=== PATIENT | male | born 1995 | race Caucasian/White ===

== ENCOUNTER 2020-08-09 07:53 | Emergency (ER) | payer MEDICAID ==
[~2020-08-09] VITALS: Ht 175.3 cm; Wt 63.5 kg
[2020-08-09 07:56] VITALS: BP 142/68
--- NOTE | 2020-08-09 07:56 | NUR ---
BIBA TAKEN TO BED 11
--- NOTE | 2020-08-09 07:59 | NUR ---
25 YO M BIB SELF FOR C/C OF DIZZINESS POST SMOKING A JOINT OF MARIJUANA. PT IS A&OX4, STATES THAT DIZZINESS HAS PASSED. DENIES PAIN AT THIS TIME. EQUAL CHEST RISE AND FALL. S1S2 HEARD. LUNG SOUNDS CLEAR THROUGHOUT. DENIES FEVER, N/V, CONTACT WITH COVID. 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 BED LOCKED AND IN LOWEST POSITION. SIDE RAILS X1. MED HX: DENIES NO RX
--- NOTE | 2020-08-09 08:00 | NUR ---
ERMD AT BEDSIDE EVALUATING PT
[2020-08-09 08:59] VITALS: BP 142/68
--- NOTE | 2020-08-09 08:59 | NUR ---
Patient discharged with v/s stable. Written and verbal after care instructions given and explained. Patient verbalized understanding. Ambulatory with steady gait. All questions addressed prior to discharge. Advised to follow up with PMD.
== END 2020-08-09 08:59 | disposition home or self-care (01) ==
LOC: MED 07:53
DX: F12.10 Cannabis abuse, uncomplicated (principal); R42 Dizziness and giddiness; J45.909 Unspecified asthma, uncomplicated; Z79.899 Other long term (current) drug therapy
CPT/HCPCS: 93005; 99283

== ENCOUNTER 2020-08-20 22:44 | Emergency (ER) | payer MEDICAID ==
[~2020-08-20] VITALS: Ht 170.2 cm; Wt 72.6 kg
[2020-08-20 22:48] VITALS: BP 135/79
--- NOTE | 2020-08-20 22:51 | NUR ---
TO [facility] A/W BED AMBULATORY, VISUAL ACUITY; BOTH EYE 20/20, LEFT EYE 20/50, RT EYE 20/40
--- NOTE | 2020-08-21 02:05 | NUR ---
PT CALLED IN LOBBY AND OUTSIDE WITH NO ANSWER. PER ADMIT STAFF, PT LEFT. PATIENT LEFT WITHOUT BEING SEEN BY DR. PALOMINO. NO FURTHER CARE PROVIDED FOR PATIENT.
== END 2020-08-21 02:05 | disposition left against medical advice (07) ==
LOC: MED 22:44
DX: H57.89 Other specified disorders of eye and adnexa (principal); Z53.21 Procedure and treatment not carried out due to patient leaving prior to being seen by health care provider

== ENCOUNTER 2023-07-03 02:00 | Emergency (ER) | payer MEDICAID ==
[~2023-07-03] VITALS: Ht 172.7 cm; Wt 67.1 kg
[2023-07-03 02:25] VITALS: BP 111/76; PULSE 98; RESP 18; TEMP 97.3; O2SAT 82
[2023-07-03] MEDS ORDERED: ACET-10509 PO (03:28)
[2023-07-03] MEDS ORDERED: BACI-418 TP (03:28)
[2023-07-03] MEDS: LIDOCAINE/EPI 1% 1:100000 20 ML VIAL INJ ONE (04:00)
[2023-07-03] MEDS ORDERED: BACITRACIN OINT 500 UNITS/GM PKT TP ONE (04:20)
== END 2023-07-03 04:11 | disposition home or self-care (01) ==
LOC: MED 02:00
DX: S81.812A Laceration without foreign body, left lower leg, initial encounter (principal); J45.909 Unspecified asthma, uncomplicated; Z79.899 Other long term (current) drug therapy; Z79.2 Long term (current) use of antibiotics; W31.2XXA Contact with powered woodworking and forming machines, initial encounter; Y92.89 Other specified places as the place of occurrence of the external cause; Y93.89 Activity, other specified; Y99.8 Other external cause status
CPT/HCPCS: 12002; 90471; 90715; 99283; J2001

== ENCOUNTER 2023-11-12 11:37 | Emergency (ER) | payer OTHER ==
[~2023-11-12] VITALS: Ht 160 cm; Wt 68.0 kg
[~2023-11-12 11:37] MED LIST: ACET-10509 PO; BACI-418 TP
[2023-11-12 11:44] VITALS: BP 127/84; PULSE 54; RESP 20; TEMP 98; O2SAT 99
[2023-11-12 12:04] LABS: BASOPHILS % (AUTO) 0.6 % (0.0-2.0); EOSINOPHILS # (AUTO) 0.3 K/uL (0-0.4); EOSINOPHILS % (AUTO) 3.7 % (0.0-4.0); HEMATOCRIT 38.3 % (36-52); HEMOGLOBIN 13.1 g/dL (12.0-18.0); LYMPHOCYTES # (AUTO) 2.3 K/uL (2.0-11.5); LYMPHOCYTES % (AUTO) 33.8 % (20.5-51.1); MEAN CORPUSCULAR HEMOGLOBIN 31 pg (27-31); MEAN CORPUSCULAR HGB CONC 34 g/dL (33-37); MEAN CORPUSCULAR VOLUME 90.1 fL (80-94); MONOCYTES # (AUTO) 0.7 K/uL (0.8-1.0); NEUTROPHILS # (AUTO) 3.5 K/uL (1.8-7.7); NEUTROPHILS % (AUTO) 50.9 % (42.2-75.2); PLATELET COUNT (AUTO) 226 K/uL (140-450); RED BLOOD CELL COUNT(AUTO) 4.26 MIL/uL (4.20-6.10); RED CELL DISTRIBUTION WIDTH 13.2 % (11.6-13.7); WHITE BLOOD COUNT (AUTO) 6.8 K/uL (4.8-10.8)
[2023-11-12] MEDS: KETOROLAC 30 MG/ML VIAL IVP ONE (12:14)
[2023-11-12] MEDS: NACL 0.9% 1,000 ML IV SCH (12:14)
[2023-11-12] MEDS: diphenhydrAMINE 50 MG/ML VIAL IVP ONE (12:14)
[2023-11-12] MEDS: METOCLOPRAMIDE 10 MG/2 ML INJ VIAL IVP ONE (12:14)
[2023-11-12 12:23] LABS: ANION GAP 9.7 (8-16); CALCIUM 8.2 mg/dL (8.5-10.1); CARBON DIOXIDE 27.8 mmol/L (21-32); CREATININE 1.1 mg/dL (0.6-1.3); POTASSIUM 3.5 mmol/L (3.5-5.1)
[2023-11-12 12:29] LABS: ALBUMIN 3.7 g/dL (3.4-5.0); BILIRUBIN,DIRECT 0.1 mg/dL (0.0-0.3); TOTAL BILIRUBIN 0.5 mg/dL (0.0-1.0); TOTAL PROTEIN, SERUM 6.8 g/dL (6.4-8.2)
[2023-11-12 13:13] LABS: BILIRUBIN,URINE NEGATIVE (NEGATIVE); BLOOD, URINE 3+ (NEGATIVE); COLOR,URINE YELLOW (YELLOW); LEUKOCYTE ESTERASE ,URINE NEGATIVE (NEGATIVE); NITRITE, URINE NEGATIVE (NEGATIVE); PROTEIN,URINE TRACE (NEGATIVE); UGLUCOSE NEGATIVE (NEGATIVE); UROBILINOGEN,URINE 0.2 EU/dL (0.2 - 1)
[2023-11-12 13:32] LABS: APPEARANCE,URINE SLIGHTLY HAZY (CLEAR); RBC,URINE TOO NUMEROUS TO COUN /HPF (0-5)
[2023-11-12 13:33] LABS: BACTERIA,URINE OCCASSIONAL /HPF (None Seen); SQUAMOUS EPITHELIAL CELL,UR 0-3 (FEW) /LPF (0-3 (FEW)); WBC,URINE 0-5 /HPF (0-5)
[2023-11-12 13:34] LABS: CANNABINOID, URINE POSITIVE ng/mL (NEG <=50)
[2023-11-12 13:35] LABS: AMPHETAMINE, URINE POSITIVE ng/ml (NEG <=1000); BARBITURATE, URINE NEGATIVE ng/ml (NEG <=200); BENZODIAZEPINE, URINE NEGATIVE ng/mL (NEG <=200); COCAINE, URINE NEGATIVE ng/mL (NEG <=300); OPIATE, URINE NEGATIVE ng/mL (NEG <=2000); PHENCYCLIDINE SCREEN,URINE NEGATIVE ng/mL (NEG <=25)
[2023-11-12] MEDS ORDERED: IBUP-2213 PO (13:41)
[2023-11-12 13:58] VITALS: BP 128/84; PULSE 60; RESP 16; TEMP 98; O2SAT 99
== END 2023-11-12 13:58 | disposition home or self-care (01) ==
LOC: MED 11:37
DX: N20.0 Calculus of kidney (principal); J45.909 Unspecified asthma, uncomplicated; F12.90 Cannabis use, unspecified, uncomplicated; Z79.899 Other long term (current) drug therapy
CPT/HCPCS: 36415; 74176; 80048; 80076; 80305; 81001; 83690; 85025; 96361; 96374; 96375; 99285; J1200; J1885; J2765; J7030